=== PATIENT | male | born 1970 | race Caucasian/White ===

== ENCOUNTER 2021-07-02 02:43 | Emergency (ER) | payer SELFPAY ==
[~2021-07-02] VITALS: Ht 170.2 cm; Wt 78.0 kg
[2021-07-02] MEDS ORDERED: IBUPROFEN 600MG TABLET PO STA (03:07)
[2021-07-02] MEDS ORDERED: IBUP-2029 PO (04:23)
[2021-07-02 04:25] VITALS: BP 158/84
== END 2021-07-02 04:35 ==
LOC: ER 02:43
DX: M25.512 Pain in left shoulder (principal); R07.89 Other chest pain; V03.19XA Pedestrian with other conveyance injured in collision with car, pick-up truck or van in traffic accident, initial encounter; Y93.89 Activity, other specified; Y92.89 Other specified places as the place of occurrence of the external cause; Y99.8 Other external cause status
CPT/HCPCS: 71045; 73030; 73060; 99284